=== PATIENT | female | born 1950 | race Caucasian/White ===

== ENCOUNTER 2018-12-22 23:34 | Emergency (ER) | payer MEDICAID, OTHER ==
[2018-12-22 23:42] VITALS: BP 156/94; PULSE 86; RESP 20; TEMP 98.1
[2018-12-23 00:49] LABS: EOS # 0.1 K/uL (0.0-0.7); EOS % 1.9 % (0.0-4.0); HEMOGLOBIN 13.3 g/dL (12.0-16.0); LYMPH # 1.2 K/uL (1.0-4.3); LYMPH % 27.2 % (20.0-40.0); MEAN CELL VOLUME 92.2 fl (81.0-99.0); MEAN CORPUSCULAR HEMOGLOBIN 30.2 pg (27.0-31.0); MEAN CORPUSCULAR HGB CONC 32.7 g/dL (33.0-37.0); MEAN PLATELET VOLUME 7.6 fl (7.2-11.7); MONO # 0.5 K/uL (0.0-0.8); MONO % 11.4 % (0.0-10.0); NEUT # 2.6 K/uL (1.8-7.0); NEUT % 58.5 % (50.0-75.0); NRBC % 0.1 % (0.0-0.0); RBC 4.4 Mil/uL (3.80-5.20); WHITE BLOOD COUNT 4.4 K/uL (4.8-10.8)
[2018-12-23 00:52] LABS: SQUAMOUS EPITHIAL < 1 /hpf (0-5); URINE BILIRUBIN NEGATIVE (NEGATIVE); URINE BLOOD SMALL (NEGATIVE); URINE CLARITY CLEAR (Clear); URINE COLOR COLORLESS (YELLOW); URINE GLUCOSE (UA) NEG (NEGATIVE); URINE LEUKOCYTE ESTERASE NEG Leu/uL (Negative); URINE PROTEIN NEGATIVE (NEGATIVE); URINE UROBILINOGEN 0.2-1.0 mg/dL (0.2-1.0)
[2018-12-23 01:00] LABS: BLOOD UREA NITROGEN 22 mg/dl (7-17); CALCIUM 9.8 mg/dL (8.4-10.2); GFR NON-AFRICAN AMERICAN > 60
[2018-12-23 01:23] LABS: ALB/GLOB RATIO 1.2 (1.0-2.1); ALT/SGPT < 6 U/L (9-52); AST/SGOT 51 U/L (14-36)
--- NOTE | 2018-12-23 01:25 | ED PDOC ---
Syncope/Near Syncope/Dizziness Time Seen by Provider: 12/22/18 23:47 Chief Complaint (Nursing): Dizziness/Lightheaded Chief Complaint (Provider): Dizziness/Lightheaded History Per: Patient History/Exam Limitations: no limitations Onset/Duration Of Symptoms: Days (x14) Additional Complaint(s): 68 years old [place] female with a history of hypertension and head injury presents to ER for evaluation of intermittent dizziness for 2 weeks. Patient describes dizziness as room spinning and disequilibrium. She states she fell 2 weeks ago due to her dizziness but denies head injury. Patient denies shortness of breath, chest pain, fever, cough, nausea, vomiting and diarrhea. PMD: None provided Past Medical History Reviewed: Historical Data, Nursing Documentation, Vital Signs Vital Signs: Last Vital Signs Temp 98.1 F 12/22/18 23:39 Pulse 86 12/22/18 23:39 Resp 20 12/22/18 23:39 BP 156/94 H 12/22/18 23:39 Pulse Ox - Medical History PMH: HTN - Surgical History Surgical History: No Surg Hx - Family History Family History: States: Unknown Family Hx - Social History Current smoker - smoking cessation education provided: No Alcohol: None Drugs: Denies - Home Medications Home Medications: Ambulatory Orders Medication Instructions Recorded Meclizine [Antivert] 25 mg PO Q6 PRN #12 tab 12/23/18 levoFLOXacin [Levaquin] 500 mg PO DAILY #10 tab 12/23/18 - Allergies Allergies/Adverse Reactions: Allergies Allergy/AdvReac Type Severity Reaction Status Date / Time No Known Allergies Allergy Verified 12/22/18 23:39 Review of Systems ROS Statement: Except As Marked, All Systems Reviewed And Found Negative Constitutional: Negative for: Fever Cardiovascular: Negative for: Chest Pain Respiratory: Negative for: Cough, Shortness of Breath Gastrointestinal: Negative for: Nausea, Vomiting, Diarrhea Neurological: Positive for: Dizziness Physical Exam - Reviewed Nursing Documentation Reviewed: Yes Vital Signs Reviewed: Yes - Physical Exam Appears: Positive for: Well, No Acute Distress Head Exam: Positive for: ATRAUMATIC, NORMOCEPHALIC Skin: Positive for: Normal Color, Warm, Dry Eye Exam: Positive for: Normal appearance, EOMI, PERRL Neck: Positive for: Normal, Painless ROM, Supple Cardiovascular/Chest: Positive for: Regular Rate, Rhythm. Negative for: Murmur Respiratory: Positive for: Normal Breath Sounds. Negative for: Wheezing Gastrointestinal/Abdominal: Positive for: Normal Exam, Soft. Negative for: Tenderness Back: Positive for: Normal Inspection. Negative for: L CVA Tenderness, R CVA Tenderness Extremity: Positive for: Normal ROM. Negative for: Pedal Edema, Deformity Neurologic/Psych: Positive for: Alert, Oriented (x3) - Laboratory Results Result Diagrams: 12/23/18 00:46 12/23/18 00:46 Medical Decision Making Medical Decision Making: Time: 2342 Initial Impression: 68 y/o female with vertiginous dizziness Initial Plan: --CT Head W/O Contrast --EKG --CMP --Troponin --Urine dipstick --CBC --Urinalysis 131 CT Head W/O Contrast Findings: COMMENTS: Secretions/air-fluid levels in the right maxillary sinus and sphenoid sinuses. Mild chronic mucosal inflammatory changes of the ethmoid air cells. There is normal configuration of sella turcica. There are no intra or extra- axial collections. There is no mass effect or midline shift. There is no evidence of hematoma formation. No hydrocephalus is present. The ventricles are symmetrical. No abnormal calcifications are present. There is diffuse age-appropriate cerebellar and cerebral atrophy with proportionally dilated ventricles and cortical sulci. There are bilateral periventricular and subcortical white matter hypolucencies compatible with mild chronic microvascular disease. Otherwise, no significant focal abnormalities are seen either in the posterior fossa or supratentorial compartment. IMPRESSION: 1. Age-appropriate cerebellar and cerebral atrophy. 2. Mild chronic microvascular disease. 3. No evidence of acute intracranial pathology. 4. Acute right maxillary and sphenoid sinusitis. 0224 Labs reviewed and show no significant abnormality. Patient is stable for discharge. Will treat for sinusitis and vertigo, patient will followup with Dr. Leyva. Diagnosis is sinusitis and vertigo. Scribe Attestation: Documented by Nohemi Myers, acting as a scribe for Sumeet Alex MD. Provider Scribe Attestation: All medical record entries made by the Scribe were at my direction and personally dictated by me. I have reviewed the chart and agree that the record accurately reflects my personal performance of the history, physical exam, medical decision making, and the department course for this patient. I have also personally directed, reviewed, and agree with the discharge instructions and disposition. Disposition - Clinical Impression Clinical Impression: Vertigo, Sinusitis - Patient ED Disposition Is Patient to be Admitted: No - Disposition Referrals: Tomas Leyva MD [Staff Provider] - Disposition: Routine/Home Disposition Time: 02:24 Condition: STABLE Prescriptions: levoFLOXacin [Levaquin] 500 mg PO DAILY #10 tab Meclizine [Antivert] 25 mg PO Q6 PRN #12 tab PRN Reason: Dizziness Instructions: Vertigo (a Type of Dizziness), Sinusitis in Adults Forms: [facility] (Al[place]ian)
--- NOTE | 2018-12-23 10:21 | CT ---
Date of service: 12/23/2018 PROCEDURE: CT HEAD WITHOUT CONTRAST. HISTORY: headache COMPARISON: None available. TECHNIQUE: Axial computed tomography images were obtained through the head/brain without intravenous contrast. Radiation dose: Total exam DLP = 718.5 mGy-cm. This CT exam was performed using one or more of the following dose reduction techniques: Automated exposure control, adjustment of the mA and/or kV according to patient size, and/or use of iterative reconstruction technique. FINDINGS: HEMORRHAGE: No intracranial hemorrhage. BRAIN: There are mild chronic microangiopathic changes. There is no mass, mass effect or abnormal extra-axial fluid collection. There is no territorial infarction. The midline sagittal structures are normal.There are coarse atherosclerotic calcifications in the cavernous carotid arteries. VENTRICLES: The ventricles are normal in size, shape and configuration. CALVARIUM: There is no calvarial fracture or extracranial soft tissue swelling. PARANASAL SINUSES: There is near complete opacification of the right maxillary sinus with fluid level, fluid in the right ethmoid air cells, moderate polypoid mucosal thickening and superimposed fluid in the sphenoid sinuses. There is scattered mucosal thickening in the left ethmoid air cells and mild mucosal thickening in the left anterior maxillary sinus. MASTOID AIR CELLS: Predominantly clear. OTHER FINDINGS: None. IMPRESSION: No acute intracranial abnormality. Mild chronic microangiopathic changes. Acute on chronic chronic right maxillary, right ethmoid and sphenoid sinusitis. Clinical follow-up is advised. A preliminary report was provided by [facility].
--- NOTE | 2018-12-23 20:33 | CARD ---
APPROVED REPORT Date of service: 12/23/2018 EKG Measurement Heart [id number] <Conclusion> Normal sinus rhythm Minimal voltage criteria for LVH, may be normal variant Borderline ECG
== END 2018-12-23 02:43 | disposition home or self-care (01) ==
LOC: H.ER 23:34
DX: R42 Dizziness and giddiness (principal); J32.2 Chronic ethmoidal sinusitis; I10 Essential (primary) hypertension